=== PATIENT | male | born 1955 | race African-American/Black ===

== ENCOUNTER → 2021-07-10 | Outpatient (CLI) | payer OTHER ==
[2017-06-14 08:41] VITALS: BP 118/63
[~2021-07-10] MED LIST: AMLO1TAB95 PO; METF500T16 PO
--- NOTE | 2021-07-10 16:46 | KCIC ---
EXAM: MRI left shoulder DATE: 07/10/2021 11:05 AM COMPARISON: None INDICATION: Reason: ADHESIVE CAPSULITIS, COMPLETE TEAR OF LEFT ROTATOR CUFF / Spl. Instructions: / H istory: Injury last November. Continued pain and LROM in lef shoulder. No surg hx. TECHNIQUE: Multiplanar, multisequence MRI of the left shoulder was performed without contrast. FINDINGS: Small left shoulder joint effusion. The subacromial-subdeltoid bursal distention for full-thickness r otator cuff tear described below. AC joint degenerative changes are seen with inferior projecting ost eophytes. No os acromiale. Type III acromion. Full-thickness tear of the supraspinatus tendon measures 2.4 cm in AP dimension with retraction to th e distal acromion. Partial-thickness reticular sided tear of the anterior portion of the infraspinatu s tendon, involving approximately 50 percent tendon thickness measuring about 1.2 cm in AP dimension. Moderate tendinosis of the distal infraspinatus tendon. Rotator cuff muscle bulk and signal is sharifa l. Intra-articular long head biceps tendinosis. Extra articular long head biceps tendon is intact. Articular cartilage is grossly preserved. Glenohumeral osteophytes are seen. Evaluation for labral te ar is limited although mild labral degeneration is seen. No acute fracture or osteonecrosis. IMPRESSION: 1. Full-thickness, partial width tear of the supraspinatus tendon with retraction to the distal acro mion. 2. Partial-thickness articular sided tear of the anterior fibers of the infraspinatus tendon. 3. Moderate distal infraspinatus tendinosis. 4. Left shoulder joint osteoarthritis. Electronically signed by: Zack Miles MD (07/10/2021 4:43 PM) [id number]
== END ==
LOC: KCIC MRI 10:47
PROVIDERS: ATTEND Physician Assistant
DX: M75.122 Complete rotator cuff tear or rupture of left shoulder, not specified as traumatic (principal); M75.02 Adhesive capsulitis of left shoulder; M19.012 Primary osteoarthritis, left shoulder; M25.412 Effusion, left shoulder; M25.712 Osteophyte, left shoulder
CPT/HCPCS: 73221